=== PATIENT | female | born 1975 | race Caucasian/White ===

== ENCOUNTER 2018-07-12 07:08 | Emergency (ER) | payer MEDICAID ==
[~2018-07-12] VITALS: Ht 160 cm; Wt 99.3 kg
[2018-07-12 07:24] VITALS: Ht 160 cm; Wt 99.3 kg
[2018-07-12 08:21] VITALS: BP 138/71
== END 2018-07-12 08:21 | disposition home or self-care (01) ==
LOC: ED 07:08
DX: J06.9 Acute upper respiratory infection, unspecified (principal)
CPT/HCPCS: J1885